=== PATIENT | male | born 1990 | race Caucasian/White ===

== ENCOUNTER 2017-12-18 21:03 | Inpatient (IN) | payer MEDICARE, MEDICAID ==
[2017-12-18 21:44] LABS: HEMATOCRIT 46.5 % (42.0-52.0); HEMOGLOBIN 16.1 g/dl (13.5-17.5); MEAN CORPUSCULAR HEMOGLOBIN 31.4 pg (27.0-33.0); MEAN CORPUSCULAR HGB CONC 34.6 g/dl (32.0-36.5); MEAN CORPUSCULAR VOLUME 90.8 fl (80.0-96.0); PLATELET COUNT, AUTOMATED 249 10^3/uL (150-450); RED BLOOD COUNT 5.12 10^6/uL (4.30-6.10); RED CELL DISTRIBUTION WIDTH 12.2 % (11.5-14.5); WHITE BLOOD COUNT 9.4 10^3/uL (4.0-10.0)
[2017-12-18 22:09] LABS: AMPHETAMINES LEVEL URINE NEGATIVE (NEGATIVE); BARBITURATES URINE NEGATIVE (NEGATIVE); BENZODIAZEPINES URINE NEGATIVE (NEGATIVE); CANNABINOIDS URINE POSITIVE (NEGATIVE); COCAINE METABOLITE URINE NEGATIVE (NEGATIVE); METHADONE URINE NEGATIVE (NEGATIVE); OPIATES URINE NEGATIVE (NEGATIVE); PHENCYCLIDINE URINE NEGATIVE (NEGATIVE)
[2017-12-18 22:27] LABS: ACETAMINOPHEN LEVEL < 2.0 UG/ML (10.0-30.0); ALBUMIN 4.5 GM/DL (3.2-5.2); ALBUMIN/GLOBULIN RATIO 1.32 (1.00-1.93); ALKALINE PHOSPHATASE 102 U/L (45-117); ALT/SGPT 33 U/L (12-78); ANION GAP 9 MEQ/L (8-16); AST/SGOT 15 U/L (7-37); BILIRUBIN,DIRECT 0.1 MG/DL (0.0-0.2); BILIRUBIN,TOTAL 0.6 MG/DL (0.2-1.0); BLOOD UREA NITROGEN 16 MG/DL (7-18); CARBON DIOXIDE LEVEL 24 MEQ/L (21-32); CHLORIDE LEVEL 108 MEQ/L (98-107); CREATININE FOR GFR 0.85 MG/DL (0.70-1.30); ETHYL ALCOHOL (ETHANOL) < 0.003 % (0.000-0.010); GLOMERULAR FILTRATION RATE > 60.0 (>60); GLUCOSE, FASTING 84 MG/DL (70-100); POTASSIUM SERUM 3.7 MEQ/L (3.5-5.1); SALICYLATE LEVEL 2.8 MG/DL (5.0-30.0); SODIUM LEVEL 141 MEQ/L (136-145); TOTAL PROTEIN 7.9 GM/DL (6.4-8.2)
[2017-12-18 22:57] LABS: FREE T4 0.95 NG/DL (0.76-1.46)
[2017-12-18 23:05] LABS: GOLD SPEC TUBE RECIEVED
[2017-12-19] MEDS ORDERED: MOM 30ML SUSPENSION UDC PO (00:30)
[2017-12-19] MEDS ORDERED: MAALOX 30 ML SUSP *UDC PO (00:30)
[2017-12-19] MEDS: CitaloPRAM (CeleXA) 20 MG TAB PO (11:06)
[2017-12-19] MEDS: CARBAMIDE PEROXIDE 6.5% OTIC SOLN 15ML AS ×2 (13:10→21:00)
[2017-12-19] MEDS: NICOTINE 21MG/24HR 1 EA TRANSDERMAL TD (18:31)
[2017-12-19] MEDS: traZODone 50 MG TAB PO (21:30)
[2017-12-20] MEDS: CARBAMIDE PEROXIDE 6.5% OTIC SOLN 15ML AS ×2 (08:39→21:34)
[2017-12-20] MEDS: NICOTINE 21MG/24HR 1 EA TRANSDERMAL TD (08:39)
[2017-12-20] MEDS: CitaloPRAM (CeleXA) 20 MG TAB PO (08:39)
[2017-12-20 09:03] LABS: FREE THYROXINE INDEX 1.5 % (1.4-3.8); T UPTAKE 33 % (33-40); THYROXINE (T4) 4.5 UG/DL (4.5-12.0)
[2017-12-20] MEDS: traZODone 50 MG TAB PO (21:33)
[2017-12-21] MEDS: NICOTINE 21MG/24HR 1 EA TRANSDERMAL TD (08:19)
[2017-12-21] MEDS: CitaloPRAM (CeleXA) 20 MG TAB PO (08:19)
[2017-12-21] MEDS: CARBAMIDE PEROXIDE 6.5% OTIC SOLN 15ML AS ×2 (08:19→21:00)
[2017-12-21 11:47] LABS: HEPATITIS A ANTIBODY IGM NEGATIVE (NEGATIVE); HEPATITIS B CORE ANTIBODY IGM NEGATIVE (NEGATIVE); HEPATITIS B SURFACE ANTIGEN NEGATIVE (NEGATIVE); HIV 1&2 SCREEN CENTAUR NEGATIVE (NEGATIVE)
[2017-12-21 11:47] LABS: HEPATITIS C VIRUS ABY INDEX < 0.0 INDEX (<0.8)
[2017-12-21] MEDS: traZODone 100 MG TAB PO (21:00)
[2017-12-22] MEDS: traZODone 100 MG TAB PO ×2 (00:25→23:11)
[2017-12-22] MEDS: CARBAMIDE PEROXIDE 6.5% OTIC SOLN 15ML AS ×2 (09:01→21:47)
[2017-12-22] MEDS: NICOTINE 21MG/24HR 1 EA TRANSDERMAL TD (09:01)
[2017-12-22] MEDS: CitaloPRAM (CeleXA) 20 MG TAB PO (09:01)
[2017-12-22] MEDS: ACETAMINOPHEN TAB 650MG DOSE (2X325MG) PO (21:19)
[2017-12-23] MEDS: CitaloPRAM (CeleXA) 20 MG TAB PO (08:28)
[2017-12-23] MEDS: NICOTINE 21MG/24HR 1 EA TRANSDERMAL TD (08:28)
[2017-12-23] MEDS: traZODone 100 MG TAB PO (22:18)
[2017-12-24] MEDS: CitaloPRAM (CeleXA) 20 MG TAB PO (08:30)
[2017-12-24] MEDS: NICOTINE 21MG/24HR 1 EA TRANSDERMAL TD (08:30)
[2017-12-24] MEDS: ACETAMINOPHEN TAB 650MG DOSE (2X325MG) PO (21:11)
[2017-12-24] MEDS: traZODone 100 MG TAB PO (22:42)
[2017-12-25] MEDS: CitaloPRAM (CeleXA) 20 MG TAB PO (08:17)
[2017-12-25] MEDS: NICOTINE 21MG/24HR 1 EA TRANSDERMAL TD (08:17)
== END 2017-12-25 13:50 | disposition home or self-care (01) | DRG 881 ==
LOC: M ED INP 12-19 00:22 → M ED 21:03 → M PSY 12-19 03:40
DX: F32.9 Major depressive disorder, single episode, unspecified (principal); R45.851 Suicidal ideations; R48.0 Dyslexia and alexia; F41.9 Anxiety disorder, unspecified; G47.00 Insomnia, unspecified; F17.200 Nicotine dependence, unspecified, uncomplicated; H61.22 Impacted cerumen, left ear